=== PATIENT | female | born 1955 | race Caucasian/White ===

== ENCOUNTER → 2017-01-01 | Outpatient (CLI) | payer BC ==
--- NOTE | 2017-01-02 09:44 | MM ---
Reason for exam: screening (asymptomatic). Last mammogram was performed 2 years and 10 months ago. History: Patient is postmenopausal and is nulliparous. Benign right breast aspiration of the right breast, January 23, 2013. Benign stereotactic core biopsy of the left breast, February 22, 2003. Physical Findings: A clinical breast exam by your physician is recommended on an annual basis and results should be correlated with mammographic findings. MG Screening Mammo w CAD Bilateral CC and MLO view(s) were taken. Prior study comparison: February 15, 2014, CAD bilateral diagnostic mammogram. January 13, 2013, [facility] DIGITAL RIGHT MAMMOGRAM w/CAD. There are scattered fibroglandular densities. Previous mammotome biopsy in the left and right breast. No significant changes when compared with prior studies. ASSESSMENT: Benign, BI-RAD 2 RECOMMENDATION: Routine screening mammogram of both breasts in 1 year.
== END | disposition home or self-care (01) ==
LOC: RADMAMWWP 08:00
PROVIDERS: ATTEND Family Medicine
DX: Z12.31 Encounter for screening mammogram for malignant neoplasm of breast (principal)

== ENCOUNTER → 2019-09-07 | Outpatient (CLI) | payer MEDICARE ==
--- NOTE | 2019-09-07 09:17 | BD ---
EXAMINATION TYPE: Axial Bone Density DATE OF EXAM: 09/07/2019 COMPARISON: NONE CLINICAL HISTORY: Postmenopausal female Height: 4 FT 11 1/2 IN Weight: 147 FRAX RISK QUESTIONS: RISK FACTORS HISTORY OF: Active: YES Postmenopausal woman: AGE 46 MEDICATIONS: Additional Medications: ATORVASTATIN Additional History: EXAM MEASUREMENTS: Bone mineral densitometry was performed using the [employer]. Bone mineral density as measured about the Lumbar spine is: ----- L1-L4(G/cm2): 1.254 T Score Values are as follows: ----- L2: 0.0 ----- L3: 0.6 ----- L4: 2.0 ----- L1-L4: 0.6 Bone mineral density has: INCREASED 3.8 % since study of: 2005 Bone mineral density about the R hip (g/cm2): 1.026 Bone mineral density about the L hip (g/cm2): 1.005 T Score values are as follows: -----R Neck: -0.1 -----L Neck: -0.2 -----R Total: 0.8 -----L Total: 0.6 Bone mineral density has: DECREASED -1.8 % since study of: 2005 IMPRESSION: Normal (Values between +1 and -1 indicate normal bone mass). Consider repeating this study in 5 year s or sooner if there is some new clinical indication. NOTE: T-SCORE=SD OF THE YOUNG ADULT MEAN.
--- NOTE | 2019-09-07 09:44 | MM ---
Reason for exam: screening (asymptomatic). Last mammogram was performed 2 years and 8 months ago. History: Patient is postmenopausal and is nulliparous. Benign right breast aspiration of the right breast, January 23, 2013. Benign stereotactic core biopsy of the left breast, February 22, 2003. Physical Findings: A clinical breast exam by your physician is recommended on an annual basis and results should be correlated with mammographic findings. MG 3D Screening Mammo W/Cad Bilateral CC and MLO view(s) were taken. Prior study comparison: January 01, 2017, bilateral MG screening mammo w CAD. February 15, 2014, CAD bilateral diagnostic mammogram. The breast tissue is heterogeneously dense. This may lower the sensitivity of mammography. Previous mammotome biopsy in the right and left breast. No significant changes when compared with prior studies. ASSESSMENT: Benign, BI-RAD 2 RECOMMENDATION: Routine screening mammogram of both breasts in 1 year.
== END | disposition home or self-care (01) ==
LOC: RADMAMWWP 07:29
PROVIDERS: ATTEND Family Medicine
DX: Z12.31 Encounter for screening mammogram for malignant neoplasm of breast (principal); M81.0 Age-related osteoporosis without current pathological fracture
CPT/HCPCS: 77063; 77067; 77080

== ENCOUNTER → 2022-07-24 | Outpatient (CLI) | payer MEDICARE ==
--- NOTE | 2022-07-25 15:12 | MM ---
Reason for Exam: Screening (asymptomatic). Last mammogram was performed 2 year(s) and 11 month(s) ago. Patient History: Menarche at age 12. Patient has no children. Postmenopausal. 01/23/2013, Benign Cyst Aspiration on the right side. 02/22/2003, Benign Stereotactic Core Biopsy on the left side. Risk Values: Patti 5 year model risk: 2.2%. NCI Lifetime model risk: 7.6%. Prior Study Comparison: 02/15/2014 Bilateral Diagnostic Mammogram, [facility]. 01/01/2017 Bilateral Screening Mammogram, [facility]. 09/07/2019 Bilateral Screening Mammogram, [facility]. Tissue Density: The breast tissue is heterogeneously dense. This may lower the sensitivity of mammography. Findings: Analyzed By CAD. There is no suspicious group of microcalcifications or new suspicious mass in either breast. There is a biopsy clip in the left breast. Overall Assessment: Negative, BI-RAD 1 Management: Screening Mammogram of both breasts in 1 year. A clinical breast exam by your physician is recommended on an annual basis and results should be correlated with mammographic findings. [facility], 07/24/2022 8:09 AM, [id number], [id number], MG 3D screening mammo w/cad. Electronically signed and approved by: Cain Ladd DO
== END | disposition home or self-care (01) ==
LOC: RADMAMWWP 07:30
PROVIDERS: ATTEND Family Medicine
DX: Z12.31 Encounter for screening mammogram for malignant neoplasm of breast (principal); Z78.0 Asymptomatic menopausal state
CPT/HCPCS: 77063; 77067

== ENCOUNTER → 2024-06-16 | Outpatient (CLI) | payer MEDICARE | END | disposition home or self-care (01) | LOC: LABPRL 10:45 | PROVIDERS: ATTEND Family Medicine | DX: Z00.00 Encounter for general adult medical examination without abnormal findings (principal); K21.9 Gastro-esophageal reflux disease without esophagitis; E78.5 Hyperlipidemia, unspecified | CPT/HCPCS: 80053; 80061; 83036; 85025 ==

== ENCOUNTER → 2024-07-27 | Outpatient (CLI) | payer MEDICARE ==
--- NOTE | 2024-07-30 02:20 | MR ---
EXAMINATION TYPE: MR knee RT wo con DATE OF EXAM: 07/27/2024 COMPARISON: Bilateral knee x-rays July 21, 2024 HISTORY: bilateral knee pain 2-3 years. TECHNIQUE: Multiplanar, multisequence images of the knee is performed without IV contrast. FINDINGS: MEDIAL MENISCUS: Subtle oblique signal posterior horn likely extends to the inferior articular surfac e. LATERAL MENISCUS: Anterior and posterior horns are intact without tear. CRUCIATE LIGAMENTS: The anterior and posterior cruciate ligaments are intact and unremarkable. COLLATERAL LIGAMENTS: The medial collateral ligament and lateral collateral ligament complex are inta ct and unremarkable. EXTENSOR MECHANISM: Visualized quadriceps and patellar tendons are intact. EFFUSION: Small to moderate size suprapatellar joint effusion. POPLITEAL CYST: No popliteal/davenport cyst. TRICOMPARTMENT SPACES: Mild to moderate tricompartment joint space loss with mild spurring CARTILAGE: Chondromalacia patella is present with thinning of articular cartilage slight posterior pa tellar pole. BONE MARROW SIGNAL: Small areas of increased T2 signal likely posterior aspect of the patellar pole. OTHER: No additional significant abnormality is appreciated. IMPRESSION: 1. [id number] tricompartmental degenerative changes are present as detailed above. 2. Small to moderate-size suprapatellar joint effusion. 3. At least intrasubstance suspected subtle full-thickness oblique tear posterior horn of medial meni scus. [facility], , 07/30/2024 2:18 AM
--- NOTE | 2024-07-30 02:23 | MR ---
EXAMINATION TYPE: MR knee LT wo con DATE OF EXAM: 07/27/2024 COMPARISON: Bilateral knee x-rays July 21, 2024 HISTORY: bilateral knee pain 2-3 years. TECHNIQUE: Multiplanar, multisequence images of the knee is performed without IV contrast. FINDINGS: MEDIAL MENISCUS: Anterior and posterior horns are intact without tear. LATERAL MENISCUS: Anterior and posterior horns are intact without tear. CRUCIATE LIGAMENTS: The anterior and posterior cruciate ligaments are intact and unremarkable. COLLATERAL LIGAMENTS: The medial collateral ligament and lateral collateral ligament complex are inta ct and unremarkable. EXTENSOR MECHANISM: Visualized quadriceps and patellar tendons are intact. EFFUSION: No significant suprapatellar joint effusion. POPLITEAL CYST: Small to moderate size popliteal/davenport cyst. TRICOMPARTMENT SPACES: Moderate narrowing patellofemoral compartment. Mild/moderate narrowing and spu rring medial and lateral tibiofemoral compartments. CARTILAGE: Some cartilaginous loss medial tibial femoral compartment. Chondromalacia patella with car tilaginous thinning along posterior patellar pole. BONE MARROW SIGNAL: No focal abnormal marrow signal is appreciated. OTHER: No additional significant abnormality is appreciated. IMPRESSION: 1. Mild to moderate tricompartment degenerative changes are present as detailed above similar to oppo site right knee. 2. There is a small to moderate size popliteal cyst in the left knee. 3. No definitive meniscal or ligamentous tear. [facility], , 07/30/2024 2:20 AM
== END | disposition home or self-care (01) ==
LOC: RADMRIMAIN 17:57
PROVIDERS: ATTEND Orthopaedic Surgery
DX: S83.241A Other tear of medial meniscus, current injury, right knee, initial encounter (principal); M17.0 Bilateral primary osteoarthritis of knee; M25.462 Effusion, left knee; M25.461 Effusion, right knee

== ENCOUNTER → 2024-08-04 | Outpatient (CLI) | payer MEDICARE ==
[2024-08-04 16:30] LABS: Basophils # (A) 0.05 X 10*3/uL (0.00-0.10); Basophils % (A) 0.6 %; Eosinophils # (A) 0.17 X 10*3/uL (0.04-0.35); Eosinophils % (A) 2.2 %; HCT 46.2 % (37.2-46.3); Lymphocytes # (A) 1.61 X 10*3/uL (0.90-5.00); Lymphocytes % (A) 20.7 %; MCH 29.2 pg (27.0-32.0); MCHC 32.5 g/dL (32.0-37.0); MCV 90.1 FL (80.0-97.0); Monocytes # (A) 0.65 X 10*3/uL (0.20-1.00); Monocytes % (A) 8.3 %; NRBC Per 100 WBC 0 X 10*3/uL (0.00-0.01); Neutrophils # (A) 5.29 X 10*3/uL (1.80-7.70); Neutrophils % (A) 67.9 %; Platelet Count 260 X 10*3/uL (140-440); RBC 5.13 X 10*6/uL (4.10-5.20); WBC 7.79 X 10*3/uL (4.50-10.00)
[2024-08-04 16:42] LABS: Anion Gap 8.9 mmol/L (4.00-12.00); Carbon Dioxide 30.1 mmol/L (21.6-31.8); Potassium 5.3 mmol/L (3.5-5.5)
== END | disposition home or self-care (01) ==
LOC: LABPAT 08:18
PROVIDERS: ATTEND Orthopaedic Surgery
DX: M23.91 Unspecified internal derangement of right knee (principal)
CPT/HCPCS: 80051; 85025; 93005

== ENCOUNTER 2024-08-26 09:07 | Day surgery (SDC) | payer MEDICARE ==
--- NOTE | 2024-08-25 14:23 | HP ---
HISTORY AND PHYSICAL DATE OF SURGERY: 08/26/2024. HISTORY OF PRESENT ILLNESS: Jesika Atkinson, 69-year-old patient seen with progressive right knee pain. We discussed options regarding treatment. She elected to proceed with right knee arthroscopy. Consent was obtained. PAST MEDICAL HISTORY: Hyperlipidemia, hypertension. PAST SURGICAL HISTORY: Noncontributory. MEDICATIONS: 1. Atorvastatin. 2. Various vitamins. ALLERGIES: None. SOCIAL HISTORY: She denies tobacco use. PHYSICAL EVALUATION OF THE RIGHT KNEE: Range of motion is 0-120 degrees. Mild effusion. Tenderness along the medial and lateral joint lines. Positive medial Dia's. Ligaments stable. Hip rotation is without pain. Distal neurovascular exam is intact. IMAGING: Right knee radiographs revealed moderate osteoarthritis. MRI right knee revealed medial meniscal tear, effusion, and mild osteoarthritis. IMPRESSION: 1. Internal derangement of right knee with medial meniscal tear. 2. Hypertension. 3. Hyperlipidemia. PLAN: Right knee arthroscopy with partial medial meniscectomy and debridement. MMODL / IJN: [id number] /
[~2024-08-26 09:07] MED LIST: HYDROmorphone 0.5 MG/0.5 ML SYRINGE IVP PRN
[2024-08-26] MEDS: ONDANSETRON 4 MG/2 ML VIAL IVP ONE (09:49)
[2024-08-26] MEDS: LACTATED RINGERS 1,000 ML IV SCH (09:49)
[2024-08-26] MEDS: DEXAMETHASONE SOD PHOSPHATE 4 MG/ML 1 ML VIAL IVP STA (09:50)
[2024-08-26] MEDS: IV FLUID CONTINUATION 1,000 ML IV ONE (09:50)
[2024-08-26] MEDS: LIDOCAINE 1% (10MG/ML) FOR IV START INTRADERMA STA (09:50)
[2024-08-26] MEDS ORDERED: PROPOFOL 10 MG/ML 20 ML VIAL IV ONE (10:26)
[2024-08-26] MEDS ORDERED: MIDAZOLAM 2 MG/2 ML VIAL ONE (10:26)
[2024-08-26] MEDS ORDERED: fentaNYL (PF) 50 MCG/ML 2 ML AMP ONE (10:26)
[2024-08-26] MEDS ORDERED: LIDOCAINE 1% INJ 10MG/ML (20 ML MDV) ONE (10:26)
[2024-08-26] MEDS ORDERED: METOPROLOL TARTRATE 5 MG/5 ML VIAL IVP ONE (10:26)
[2024-08-26] MEDS: BUPIVACAINE (PF) 0.25% 30 ML VIAL SQ ONE ×3 (10:45→11:07)
--- NOTE | 2024-08-26 11:24 | P.OP ---
Date of Procedure: 08/26/24 Preoperative Diagnosis: Internal derangement right knee Postoperative Diagnosis: 1. Tear medial and lateral meniscus right knee 2. Reactive synovitis medial, lateral and suprapatellar compartments right knee 3. 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 Arthroscopic partial medial and lateral meniscectomy right knee 2. Arthroscopic partial synovectomy medial, lateral and suprapatellar compartments right knee 3. Arthroscopic chondroplasty medial femoral condyle right knee Anesthesia: DELORESA, local Surgeon: Bobby Knight Estimated Blood Loss (ml): 7 Pathology: none sent Condition: stable Disposition: PACU Indications for Procedure: 69-year-old patient seen with progressive right knee pain. After having treatment options discussed, she elected to proceed with arthroscopy. Operative Findings: See description of procedure Description of Procedure: Patient was taken to the operative suite. Patient underwent a general anesthetic by the department of anesthesia. Patient was given preoperative antibiotics. The right lower extremity was placed in a well-padded arthroscopic leg perez. The right leg was prepped and draped in the normal sterile orthopedic fashion. A lateral parapatellar and suprapatellar incision was made. Trochars were inserted. Arthroscopy was initiated. Suprapatellar pouch revealed diffuse thick reactive synovitis. The patellofemoral joint appeared to articulate congruently. There was grade I chondromalacia of the patella without significant tearing. The scope was guided into the medial gutter. No loose bodies or plica were identified. The scope was then guided into the medial compartment. A medial parapatellar incision was made. Trocar inserted followed by probe. There was a tear involving posterior medial meniscus. There were grade II chondromalacia changes medial femoral condyle with some small osteochondral flap tears present. There was thick reactive synovitis anteriorly. I performed a partial medial meniscectomy getting down to stable meniscal tissue. I performed a chondroplasty of the medial femoral condyle getting down to stable osteochondral tissue. I performed a partial synovectomy decompressing the thick reactive synovitis. The residual meniscus was stable. The residual osteochondral surface was stable. There was good decompression of the synovitis. Scope and probe were then guided into the intercondylar notch. Cruciates were identified, probed and found to be stable. The scope and probe were then guided into lateral compartment. There was a radial tear mid body lateral meniscus. There was grade I chondromalacia without tears. There was some thick reactive synovitis anteriorly. I performed a partial lateral meniscectomy getting down to stable meniscal tissue. I performed a partial synovectomy decompressing the reactive synovitis. The residual meniscus was stable. There was good decompression of the synovitis. The scope was in guided back into the suprapatellar compartment. I used a motorized shaver into the supra compartment. I debrided some piecemeal fragments of meniscus I encountered. I performed a partial synovectomy. The shaver was now removed. There was good decompression of the synovitis. I took 1 more look around the entire knee, no residual debris. Instruments were now removed from the joint. The joint was infiltrated with .25% Marcaine. Steri-Strips were applied to the portal sites. Sterile dressings were applied. The patient was placed into a ALIREZA hose. No tourniquet was utilized. The patient was awakened, transferred to a bed and taken to recovery stable satisfactory condition.
[2024-08-26 11:29] VITALS: TEMP 96.8
[2024-08-26 12:14] VITALS: RESP 18
[2024-08-26 12:33] VITALS: BP 139/53; PULSE 69
== END 2024-08-26 12:54 | disposition home or self-care (01) ==
LOC: OR 09:07
PROVIDERS: ATTEND Orthopaedic Surgery